=== PATIENT | female | born 1960 | race Caucasian/White ===

== ENCOUNTER → 2019-12-01 08:37 | Outpatient (CLI) | payer BC, SELFPAY ==
--- NOTE | ~2019-12-01 | XR_ITS ---
XR knee LT min 4V 12/01/2019 09:28 Indication: Left knee pain and swelling Procedure: 4 views left knee Comparison: No prior studies for comparison. Findings: There is moderate osteoarthritis of the left knee primarily involving the medial compartmen t. No fracture, subluxation or dislocation. No significant joint effusion. No foreign bodies. Impression: 1: Moderate osteoarthritis of the left knee. Reviewed, dictated and finalized at location A. Impression: 1: Moderate osteoarthritis of the left knee.
--- NOTE | ~2019-12-01 | XR_ITS ---
EXAMINATION: XR foot RT min 3V DATE: 12/01/2019 09:29 INDICATION: Right foot pain. TECHNIQUE: 4 views of right foot were obtained. COMPARISON: None. FINDINGS: Bone alignment is normal. No fracture. There is mild osteoarthritis of first metatarsophala ngeal joint and many of the midfoot joints. There is an enthesophyte at plantar aspect of calcaneal t uberosity. IMPRESSION: 1. Mild polyarticular osteoarthritis. Reviewed, dictated and finalized at location A.
== END ==
PROVIDERS: PCP Nurse Practitioner Psychiatric/Mental Health; Visit Provider Nurse Practitioner Psychiatric/Mental Health
DX: M25.462 Effusion, left knee (principal); M19.072 Primary osteoarthritis, left ankle and foot; M17.12 Unilateral primary osteoarthritis, left knee
CPT/HCPCS: 73564; 73630

== ENCOUNTER → 2021-01-24 12:54 | Outpatient (CLI) | payer BC, SELFPAY ==
--- NOTE | ~2021-01-24 | MR_ITS ---
EXAMINATION: MR shoulder LT wo con DATE: 01/24/2021 13:40 INDICATION: Left shoulder pain TECHNIQUE: Magnetic resonance imaging (MRI) of the left shoulder was performed without intravenous co ntrast. Sequences included axial PD-weighted FS FSE, coronal oblique PD-weighted FS FSE, coronal obli que T2-weighted FS FSE, sagittal PD-weighted FS FSE, and sagittal T1-weighted SE. COMPARISON: None. FINDINGS: Coracoacromial arch: The acromion undersurface is curved in morphology (type II). The coracoacromial ligament is normal. M ild to moderate acromioclavicular osteoarthritis. Rotator cuff: Moderate supraspinatus and mild infraspinatus tendinopathy without discrete tear. The teres minor ten don is normal. Mild subscapularis tendinopathy without discrete tear. Normal rotator cuff muscle bulk and signal. Biceps tendon, glenoid labrum and glenohumeral cartilage: Long head of the biceps tendon is normal. Glenoid labrum is normal. Approximately 1.5 cm diameter reg ion of deep chondral ulceration along the posterior superomedial aspect of the humeral head. Mild cho ndral surface regularity with shallow fissuring at the anteroinferior aspect of the glenoid. Mild sub articular marrow signal change along the posterior inferior rim of the glenoid without appreciable ov erlying chondromalacia. Fluid: Small glenohumeral joint effusion with mild synovitis at the axillary and deep subscapular recesses. No loose osteochondral bodies. No abnormal fluid signal in the subacromial/subdeltoid bursa to sugges t bursitis. Bones: Bone alignment is normal. No fracture or pathologic marrow replacing process. Mild cystic change at t he middle facet of the greater tuberosity. IMPRESSION: 1. Moderate supraspinatus and mild subscapularis and infraspinatus tendinopathy without discrete tear . 2. Mild glenohumeral osteoarthritis with 1.5 cm diameter deep chondral ulceration along the humeral h ead and likely reactive small glenohumeral joint effusion. 3. Mild to moderate acromioclavicular osteoarthritis. Reviewed, dictated and finalized at location A. [employer] IMPRESSION: 1. Moderate supraspinatus and mild subscapularis and infraspinatus tendinopathy without discrete tear. 2. Mild glenohumeral osteoarthritis with 1.5 cm diameter deep chondral ulcerati on along the humeral head and likely reactive small glenohumeral joint effusion . 3. Mild to moderate acromioclavicular osteoarthritis.
== END ==
PROVIDERS: PCP Family Medicine
DX: M25.512 Pain in left shoulder (principal); M75.82 Other shoulder lesions, left shoulder; M19.012 Primary osteoarthritis, left shoulder; M86.8X2 Other osteomyelitis, upper arm
CPT/HCPCS: 73221

== ENCOUNTER → 2022-02-18 13:37 | Outpatient (CLI) | payer BC, SELFPAY ==
--- NOTE | ~2022-02-18 | DEXA_ITS ---
Bone Density Report Name: KIRILL LOBO Age: 62 Sex: Female Ethnicity: White Date of : 1960 Indication: postmenopausal; screening for osteoporosis; height loss; hysterectomy; Referring Provider: TORREY IZQUIERDO Study: Bone densitometry was performed. Exam Date: February 18, 2022 Accession number: [id number] Bone Density: Region BMD T-score Z-score Classification AP Spine (L1-L4) 1.160 1.0 2.6 Normal Femoral Neck (Left) 0.774 -0.7 0.7 Normal Total Hip (Left) 0.914 -0.2 0.8 Normal Femoral Neck (Right) 0.714 -1.2 0.2 Osteopenia Total Hip (Right) 0.902 -0.3 0.7 Normal Total Hip Mean 0.908 -0.3 0.8 Normal World Health Organization criteria for BMD impression classify patients as: Normal (T-score at or above -1.0), Osteopenia (T-score between -1.0 and -2.5), or Osteoporosis (T-score at or below -2.5). 10-year Fracture Risk(1): Major Osteoporotic Fracture 7.3% Hip Fracture 0.5% Reported Risk Factors: [place] (), Neck BMD=0.714, BMI=34.2 (1) FRAX(R) Version 3.08. Fracture probability calculated for an untreated patient. Fracture probability may be lower if the patient has received treatment. Clinical Information Provided by Patient: Has used the following medications: Vitamin D Has the following medical conditions: Hysterectomy Patient maximum height was 64 Menopause Age: 50 Does not regularly consume dairy products Drinks caffeinated beverages Onset of menses at age 12 Number of children 3 Impression: The patient has low bone mass, based on the Right Femoral Neck T-score. The patient has an estimated ten-year risk of hip fracture of 0.5% and an estimated ten-year risk of major fracture of 7.3%, based on the WHO FRAX algorithm. Discussion: BONE DENSITY IS LOW AT ONE OR MORE SKELETAL SITES. This patient's lowest T-score is low at one or more skeletal sites. It meets the World Health Organization's (WHO) criteria for ?low bone mass? (T-score between -1.0 and -2.5). The patient's 10-year risk of fracture as calculated by FRAX is less than the threshold where pharmacological therapy is recommended by the National Osteoporosis Foundation (NOF). However, all treatment decisions require clinical judgment and consideration of individual patient factors, including patient preferences, comorbidities, previous drug use, risk factors not captured in the FRAX model (e.g., frailty, falls, vitamin D deficiency, increased bone turnover, interval significant decline in bone density) and possible under or overestimation of fracture risk by FRAX. The patient should follow a healthful lifestyle (good nutrition with adequate calcium and vitamin D, and appropriate weight-bearing exercise). Follow-Up: Consider repeating this study in 2 to 3 years to reassess this patient's status, or sooner if t
== END ==
PROVIDERS: PCP Family Medicine
DX: Z00.00 Encounter for general adult medical examination without abnormal findings (principal); Z13.820 Encounter for screening for osteoporosis; M85.851 Other specified disorders of bone density and structure, right thigh
CPT/HCPCS: 77080

== ENCOUNTER 2023-03-02 10:28 | Emergency (ER) | payer BC, SELFPAY ==
[2023-03-02 10:43] VITALS: BP 130/66; PULSE 81; RESP 16; TEMP 37.3; O2SAT 99
--- NOTE | 2023-03-02 12:00 | ED.GENADULT ---
HPI - General Adult General Chief complaint: Upper Respiratory Infection Stated complaint: Covid Source: patient Mode of arrival: ambulatory Limitations: no limitations History of Present Illness HPI narrative: Patient presents requesting a COVID test. She had a COVID test earlier today at home which was positive. She has experience sinus congestion, sore throat and mild cough for last 2 days. No fever, nausea, vomiting, diarrhea, shortness of breath. 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 She had COVID in the past and was given packs of it. She responded favorably to the medication. She was advised by her primary doctor that she should receive paxlovid in the future if she ever had COVID. She was told not to take her statin while on paxlovid. She does not smoke. Related Data Home Medications Medication Instructions Recorded Confirmed atorvastatin 40 mg tablet 40 mg PO DAILY 03/02/23 03/02/23 diltiazem HCl 120 mg 120 mg PO DAILY 03/02/23 03/02/23 capsule,extended release 24 hr levothyroxine 50 mcg tablet 50 mcg PO DAILY 03/02/23 03/02/23 nitroglycerin 0.4 mg sublingual 0.4 mg sublingual DIRECTED 03/02/23 03/02/23 tablet tirzepatide 15 mg/0.5 mL 15 mg subcut WEEKLY 03/02/23 03/02/23 subcutaneous pen injector (Partha) Allergies Allergy/AdvReac Type Severity Reaction Status Date / Time loratadine Allergy Intermediate rash Verified 03/02/23 10:55 sulfamethoxazole Allergy Intermediate rash Verified 03/02/23 10:55 trimethoprim Allergy Intermediate rash Verified 03/02/23 10:55 Review of Systems Review of Systems: CONSTITUTIONAL: Denies fever, chills, or sweats. EYES: Denies visual changes, redness, or discharge. ENT: Reports sore throat and sinus congestion. Denies otalgia CARDIOVASCULAR: Denies chest pain, palpitations, or edema. RESPIRATORY: Reports cough. Denies shortness of breath. GASTROINTESTINAL: Denies abdominal pain, nausea, vomiting, or diarrhea. GENITOURINARY: Denies dysuria or hematuria. SKIN: Denies rash or itching. MUSCULOSKELETAL: Denies back pain, joint pain, or myalgia. NEUROLOGIC: Denies headache, numbness, dizziness, or weakness. PSYCHIATRIC: Denies anxiety or depression. [facility] Past Medical History Medical History Hyperlipidemia Hypertension Surgical History Surgical History No pertinent past surgical history Family History Family History Other Family history of cardiovascular disease Family history of lung cancer Family history of lymphoma Social History Social History Substance use: never Occupation/Education: daycare Gender identity (if verbalized by the patient): Female Spiritual care concerns: No Exam Narrative: GENERAL: Well-appearing, well-nourished, and in no acute distress. HEAD: Normocephalic, atraumatic. EYES: PERRLA and EOMI. ENT: Nares clear, no rhinorrhea or epistaxis. Mucous membranes moist. Oropharynx without tonsillar hypertrophy exudate or other lesions. Bilateral TMs pearly pickens nonbulging NECK: Supple. No adenopathy or masses. No carotid bruits or JVD CHEST: Clear to auscultation. No respiratory distress. No wheezes rales or rhonchi HEART: Regular rate and rhythm. No murmur heard. Normal peripheral pulses. ABDOMEN: Soft, nontender, nondistended, normal active bowel sounds. EXTREMITIES: Normal range of motion. No edema. SKIN: Warm, dry, no rash. NEURO: No focal deficits. Alert and oriented x3. PSYCH: Normal mood and affect. Course Course Emergency Course: This is a 63-year-old female who presented for evaluation of sick symptoms with the recent COVID test at home earlier today which was positive. COVID here was also positive. I recom
== END 2023-03-02 12:01 | disposition home or self-care (01) ==
PROVIDERS: Emergency Provider Nurse Practitioner; PCP Family Medicine
DX: U07.1 COVID-19 (principal); E78.5 Hyperlipidemia, unspecified; I10 Essential (primary) hypertension; Z79.899 Other long term (current) drug therapy
CPT/HCPCS: 87426; 99203; C9803; G0463